=== PATIENT | male | born 1935 | race Caucasian/White ===

== ENCOUNTER 2018-06-21 11:44 | Inpatient (IN) ==
[2018-06-21 13:45] LABS: BASO# 0.04 X1000 (0.0-0.2); BASO% 0.5 % (0.0-0.8); EOS# 0.13 X1000 (0.0-0.7); EOS% 1.7 % (0.0-10.0); HEMATOCRIT 28.6 % (42.0-52.0); HEMOGLOBIN 8.9 g/dL (14.0-18.0); LYMPH# 1.34 X1000 (1.2-3.4); LYMPH% 17.4 % (20.5-51.1); MCH 29.2 PG (27-31); MCHC 31.1 g/dL (33-37); MCV 93.8 FL (81-99); MONO# 0.51 X1000 (0.11-0.59); MONO% 6.6 % (1.7-9.3); MPV 9.9 FL (7.4-10.4); NEUT# 5.66 X1000 (1.4-6.5); NEUT% 73.8 % (42.2-75.2); PLT 128 X1000 (130-400); RBC 3.05 XMIL (4.7-6.1); RDW 15.9 % (11.5-14.5); WBC 7.68 X1000 (4.8-10.8)
[2018-06-21 13:54] LABS: INR 1.93; PROTIME 23.5 Seconds (11.0-16.0)
[2018-06-21 13:56] LABS: PTT 73.8 Seconds (22.3-41.8)
[2018-06-21 14:04] LABS: ALB/GLOB RATIO 1.3; ALBUMIN 3.1 g/dL (3.5-5.0); CALCIUM 9.7 mg/dL (8.8-10.2); CREATININE 1.4 mg/dL (0.7-1.2); POTASSIUM 3.1 mmol/L (3.5-5.1); TOTAL BILIRUBIN 0.63 mg/dL (0.20-1.00); TOTAL PROTEIN 5.4 g/dL (6.3-8.3)
[2018-06-21 14:25] LABS: URINE SOURCE VOIDED
[2018-06-21 14:28] LABS: UR EPITHELIAL CELLS <10 /HPF (<10); URINE BACTERIA 1+ /HPF; URINE RBC TNTC /HPF (<10); URINE WBC <10 /HPF (<10)
[2018-06-21 14:31] LABS: BILIRUBIN URINE NEGATIVE (NEGATIVE); BLOOD URINE LARGE (NEGATIVE); COLOR ORANGE; GLUCOSE URINE NEGATIVE (NEGATIVE); KETONE URINE NEGATIVE (NEGATIVE); LEUKOCYTES URINE TRACE (NEGATIVE); NITRITE URINE NEGATIVE (NEGATIVE); PH URINE 6.5; PROTEIN URINE TRACE mg/dL (NEGATIVE); TURBIDITY URINE HAZY (CLEAR); UROBILINOGEN URINE NORMAL (NORMAL)
[2018-06-21] MEDS ORDERED: VITAMIN K SUBQ ONE (15:54)
[2018-06-21] MEDS ORDERED: NS 500 ML IV ONE (17:39)
--- NOTE | 2018-06-21 18:56 | HISTORY AND PHYSICAL ---
CHIEF COMPLAINT: Gross hematuria. HISTORY OF PRESENT ILLNESS: Mr. Scott is an 83-year-old gentleman followed by Dr. Contreras for multiple medical problems including prostate cancer, chronic atrial fibrillation on anticoagulation, and congestive heart failure. He is followed by Dr. Dav Montes for his prostate cancer. His geophysical engineer is Dr[facility] [place]. He came to the emergency room today because of persistent hematuria. His daughter is with him. Apparently, she drives up on the weekends from [place] since his approximately a month ago. He is feeling well and denies any pain. Last night he passed a fair amount of bright red blood in his urine. His daughter tried to get him to come to the emergency room last night but he decided to wait until this morning. This morning he took his Pradaxa and again urinated a fairly large amount of bright red blood. He does not normally wear briefs, but had a disposable brief on last night and this morning it was soaked in bright red urine and his daughter has a picture of it. He denies passing clots. Here in the emergency room, his blood pressure is 94/60 and his hemoglobin is 8.9, hematocrit 28.6%. There are no recent baselines to compare to. Approximately 18 months ago his hemoglobin was 11.7 in July of 2016. He denies fever, chills, or dysuria. He has not noticed any increased frequency of urination. He denies any dizziness or weakness. PAST MEDICAL HISTORY: He has had prostate cancer for at least six years. He does not seem to be on any maintenance medications for this. He has a history of congestive heart failure and chronic atrial fibrillation as well as hyperlipidemia. He also has a history of hypertension. HOME MEDICATIONS: Allopurinol 300 mg daily, carvedilol 25 mg twice a day, Pradaxa one twice a day, furosemide 40 mg daily, lisinopril 20 mg daily, nifedipine XL 60 mg daily, potassium 40 mEq every morning and 20 mEq at bedtime, simvastatin 40 mg at bedtime. ALLERGIES: He is allergic to sulfa drugs. FAMILY HISTORY: Noncontributory. SOCIAL HISTORY: He is recently . He lives alone. His daughter had planned to return to [place] today. He is a nonsmoker. REVIEW OF SYSTEMS: GENERAL: No fever, chills, headache, night sweats. He does admit to some slow weight loss over the last six months to a year. HEENT: Vision and hearing are adequate without recent changes. RESPIRATORY: No cough, shortness of breath, sputum production or chronic lung disease. CARDIOVASCULAR: He has a history as above. No recent anginal chest pain, orthopnea, PND, or pedal edema. GI: His appetite has been good. He denies any nausea, vomiting, diarrhea, constipation, melena, or bright red blood per rectum. : Voiding well without pain. He denies a previous history of stones. MUSCULOSKELETAL: Previous history of gouty arthritis. NEUROPSYCHIATRIC: No history of strokes or seizures. No recent depression or memory problems. DERMATOLOGIC: No rash or itching. PHYSICAL EXAMINATION: VITAL SIGNS: Temperature 97.6, blood pressure 94/46, pulse 64, respirations 16, O2 saturation 98% on room air. GENERAL APPEARANCE: Tall, slender, elderly white gentleman who is alert and talkative and in no distress. There is a urinal at the bedside with light orange urine but with some dried blood around the opening. HEENT: There is no visible evidence of trauma. Pupils are equal, round, and reactive to light, two to three mm. Oropharynx is benign. NECK: Supple with no adenopathy, JVD, or bruits. CHEST: Lungs are clear to auscultation and percussion. CARDIAC: There is an irregularly irregular rhythm with an apical rate of 66. I do not appreciate any murmurs or gallops. ABDOMEN: Soft, flat, and nontender with active bowel sounds. There is no guarding or rebound tenderness. : Some dried blood is present around the meatus, otherwise unremarkable. EXTREMITIES: There is some slight symmetrically reduced muscle mass, particularly in the hypothenar area. DATE BASE: White blood count is normal. Hemoglobin 8.9, hematocrit 28.6%, and platelet count is 128,000. Sodium 141, potassium 3.1, glucose 134, BUN 50, creatinine 1.4, albumin 3.1. Urinalysis with hazy, orange urine; large blood; too numerous to count red blood cells; trace leukocytes; 1+ bacteria. ASSESSMENT: 1. Impressive gross hematuria with anemia. It is most likely due to either infection or possibly his prostate cancer. The emergency room physician has already spoken with Dr. Huynh, who is contact center analyst for Dr. Montes. They will follow him. 2. Elevated BUN and creatinine suggestive of prerenal azotemia. 3. Hypotension, possibly dehydration, although he denies any diarrhea, vomiting, or increased thirst. 4. History of congestive heart failure. 5. Therapeutic anticoagulation with Pradaxa. His INR is nearly therapeutic, although he is not taking Coumadin. His last dose of Pradaxa was this morning, so it will probably take at least 24 hours to wear off. TREATMENT PLAN: Will admit for serial hemoglobin and hematocrit. Hold his Pradaxa and use sequential compression devices for DVT prophylaxis. Dr. Montes is consulted and Dr. Contreras should return tomorrow to assume responsibility for his care. I do not think his bleeding is vigorous enough to require reversal of the Pradaxa. cc: Robert Kramer MD
[2018-06-21] MEDS ORDERED: POTASSIUM CHLORIDE 20 MEQ in NS 250 ML IV ONE (19:00)
[2018-06-21] MEDS: NS 1,000 ML IV SCH (20:17)
[2018-06-21] MEDS: COREG PO SCH (21:20)
[2018-06-21] MEDS: ZYLOPRIM PO SCH (21:22)
[2018-06-21] MEDS: KLOR-CON PO SCH (21:22)
[2018-06-21] MEDS: ZOCOR PO SCH (21:22)
[2018-06-22] MEDS: NS 1,000 ML IV SCH (05:31)
[2018-06-22 07:18] LABS: HEMOGLOBIN 8.1 g/dL (14.0-18.0); MCH 29.8 PG (27-31); MCHC 31.2 g/dL (33-37); MCV 95.6 FL (81-99); MPV 9.9 FL (7.4-10.4); RBC 2.72 XMIL (4.7-6.1); WBC 7.57 X1000 (4.8-10.8)
[2018-06-22 07:39] LABS: AGAP 10; BUN 48 mg/dL (8-22); CALCIUM 9.2 mg/dL (8.8-10.2); CHLORIDE 110 mmol/L (98-107); COSMO 305; CREATININE 1.1 mg/dL (0.7-1.2); ESTIMATED GFR > 60; GLUCOSE 127 mg/dL (70-104); MAGNESIUM 1.9 mg/dL (1.5-2.7); POTASSIUM 3.5 mmol/L (3.5-5.1); SODIUM 146 mmol/L (136-145); TCO2 26 mmol/L (25-35)
[2018-06-22] MEDS: COZAAR PO SCH ×2 (08:53→08:56)
[2018-06-22] MEDS: KLOR-CON PO SCH ×2 (08:53→19:59)
[2018-06-22] MEDS: ADALAT CC PO SCH ×2 (08:53→08:56)
[2018-06-22] MEDS: COREG PO SCH ×4 (08:53→19:59)
--- NOTE | 2018-06-22 13:02 | PROGRESS NOTE ---
DATE: 06/22/2018 SUBJECTIVE: The patient was admitted with gross hematuria over the weekend. He had blood-filled adult diapers as well as blood clots that were noted. This has dissipated somewhat over the last 24 hours with hydration and cessation of his Pradaxa. He does not have any complaints. We did discuss appropriate blood pressure levels for the patient of his age and with his comorbidities. The patient's daughter, who is in from [place], was present for our entire conversation. OBJECTIVE: Vital Signs: 98.6, 60, 17, 109/69, 98% saturated on room air. Lungs: Clear. Cardiovascular: Regular at 60. Neurologic: The patient is alert oriented conversive and appropriate. LABORATORY: Hemoglobin is 8.1, hematocrit 26, BUN 48, creatinine 1.1, and glucose 127. ASSESSMENT AND PLAN: 1. A consultation for Dr. Montes has been put in. Dr. Montes is taking care of the patient for his prostate cancer in the past, and will likely need to proceed with cystoscopy for clot evacuation and general examination. 2. The patient's Pradaxa has been held. Since the patient is on a pacemaker at the present time, even though he has atrial fibrillation. Given his age and other comorbidities, I am not sure that full-strength Pradaxa is the appropriate medication. We will entertain lower doses of other agents as time goes on. For the time being, we are going to remain with that medication held. 3. The patient's blood pressure was noted to be low in the office on his last visit last week. We discussed reduction of one of his diuretics, which are being held at present. We are also going to lower a couple of his medications to get a higher resting blood pressure, so he will experience less in the way of unsteadiness and orthostasis. 4. Atrial fibrillation with pacer aware. cc: MD Robert Segal MD
[2018-06-22] MEDS ORDERED: ELMIRON PO ONE (18:50)
--- NOTE | 2018-06-22 19:30 | CONSULTATION ---
DATE OF CONSULTATION: 06/22/2018 ATTENDING AND REFERRING PHYSICIAN: Dr. Contreras. 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 He completed radiation therapy in May 2011. His PSA in June 2017 was 0.77. The patient has a history of coronary artery disease and atrial fibrillation. He has a pacemaker and is on Pradaxa. Several days ago he developed gross hematuria. The patient states he has always been able to void, but today started passing some clots. His Pradaxa has been held. PAST MEDICAL HISTORY: Coronary artery disease, gout, hypertension, prostate cancer. CURRENT MEDICATIONS: Documented in his chart. PAST SURGICAL HISTORY: AccuLock seed placement and then radiation therapy, inguinal hernia repair, first left and then several years later right, knee replacement surgery, hemorrhoids surgery, tonsillectomy and teeth extraction. SOCIAL HISTORY: He denies alcohol use. No cigarette use for several years. ALLERGIES: No known drug allergies. REVIEW OF SYSTEMS: He denies any problems with diabetes, strokes, seizures, recent pulmonary or bowel problems. PHYSICAL EXAMINATION: General: A normally developed, well-nourished, age apparent white male, oriented in all ways and cooperative. HEENT: Normal for age. Lungs: Clear. Cardiovascular: Irregular rate and rhythm. Abdomen: Mildly protuberant, soft, nontender. No hepatosplenomegaly or masses. Normal bowel sounds. No inguinal hernias. Genitourinary: Uncircumcised male. Foreskin retracts and there is blood at the meatus. Both testes are down. Scrotal exam is normal. There are bilateral hydroceles. Rectal: Deferred until surgery. Extremities: No clubbing, cyanosis or edema. Neurologic: No focal deficits. DIAGNOSTIC DATA: Laboratory evaluation: Urinalysis has too numerous to count red cells, but no white cells, +1 bacteria. No culture was obtained. CBC has a white count of 7.57, hemoglobin 8.1, hematocrit 26, platelets are 122,000. Serum sodium is 146, potassium 3.5, chloride 110, bicarb 26, BUN 48, creatinine 1.1. IMPRESSION: Patient with history of radiation therapy on anticoagulants with gross hematuria. RECOMMEND: 1. Cystoscopic exam, clot irrigation, bilateral retrograde pyelograms. Cauterize any bleeding areas noted. This planned procedure, benefits versus risks, possible complications including but not limited to bleeding, infection, not being able to stop the bleeding, recurrence of the bleeding, need for further surgery was discussed. The patient and daughter seemed to understand and desired to proceed. 2. Start Elmiron 100 mg p.o. t.i.d. 3. Check PSA. Thank you for this consultation. cc: MD Robert Palma MD MTDD
[2018-06-22] MEDS: ZOCOR PO SCH (19:59)
[2018-06-22] MEDS: ZYLOPRIM PO SCH (19:59)
[2018-06-23] MEDS: ELMIRON PO SCH ×4 (06:13→19:01)
[2018-06-23] MEDS ORDERED: COZAAR PO SCH (09:00)
[2018-06-23] MEDS ORDERED: NEOSPORIN G.U. IRRIGANT ONE (10:53)
[2018-06-23] MEDS ORDERED: DIPRIVAN 1% ONE (11:21)
[2018-06-23] MEDS ORDERED: XYLOCAINE-MPF 2% ONE (11:21)
[2018-06-23] MEDS ORDERED: KEFZOL 1 GM/D5W 1 GM/50 ML IVPB ONE (12:16)
--- NOTE | 2018-06-23 12:57 | PROGRESS NOTE ---
DATE: 06/23/2018 SUBJECTIVE: The patient states that he is feeling better. He still having gross hematuria into his diaper. Dr. Montes was consulted yesterday and plans to do a cystoscopy today. The patient is made n.p.o. and is awaiting cystoscopy now. OBJECTIVE: Vital Signs: 98.3, 60, 142/74, 100% saturated on room air. Lungs: Clear. Cardiovascular: Regular at 60. Extremities: No edema. ASSESSMENT AND PLAN: 1. The patient will undergo cystoscopy today in the OR with Dr. Montes for evacuation of clots and fulguration of any bleeding lesions. Hopefully, this will just be a minor surgical procedure for him, despite his age. We will recheck his blood count tomorrow and monitor for signs of recurrence. We are going to hold his Pradaxa, and we will have to design a new anticoagulation program for him at the time of discharge. 2. The patient's history of congestive failure remains. We are monitoring fluid status and blood count. 3. 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 We will continue to monitor those levels. cc: MD Robert Segal MD
--- NOTE | 2018-06-23 13:37 | Diag Imaging Result Doc PS360 ---
EXAM: RETROGRADES 2 OR 3 FILMS HISTORY: HEMATURIA TECHNIQUE: 32 films submitted COMPARISON: None. FINDINGS: Early films have retrograde filling of the left ureter. No obstruction to retrograde flow. Normal distention of the renal pelvis and calyces. No filling defect or stricture. Later films have retrograde filling of the right ureter. No obstruction to retrograde flow. No stricture or filling defect. Normal drainage. Prominent atherosclerosis. IMPRESSION: Normal retrograde exam. Electronically signed by Ganga Coyle 06/23/2018 1:34 PM
[2018-06-23] MEDS: KLOR-CON PO SCH ×3 (18:30→21:09)
[2018-06-23] MEDS: COREG PO SCH ×2 (18:55→21:03)
[2018-06-23] MEDS: ADALAT CC PO SCH (19:03)
--- NOTE | 2018-06-23 20:13 | OPERATIVE NOTE ---
PROCEDURE DATE: 06/23/2018 PREOPERATIVE DIAGNOSIS: History of prostate cancer, status post radiation therapy, with gross hematuria and clots. POSTOPERATIVE DIAGNOSIS: History of prostate cancer, status post radiation therapy, with gross hematuria and clots. PROCEDURES PERFORMED: Cystoscopic exam, clot irrigation, fulguration of bleeding vessels in the prostatic urethra, bilateral retrograde ureteral pyelograms. ANESTHESIA: General via laryngeal mask. FINDINGS: Cystoscopic exam: Urethra: Greater than 23-[place] without stricture. Prostate: Mild coapting lateral lobes. Bleeding vessels along the prostatic urethra and bladder neck. Bladder: Normal ureteral orifices bilaterally. There were a few clots in the bladder with active bleeding vessels at the bladder neck. There were no papillary lesions. Grade 1 trabeculations. No diverticula. Left retrograde ureteral pyelogram: Normal without filling defect. Right retrograde ureteral pyelogram: Normal without filling defect. Rectal exam revealed a prostate of about 40 grams, firm, consistent with radiation therapy. INDICATION FOR PROCEDURE: This 83-year-old male, with history of adenocarcinoma of the prostate, status post radiation therapy, developed gross hematuria. He developed urgency and urge incontinence and was wearing a diaper which would be filled with blood. The patient was admitted and presents for cystoscopic exam, clot irrigation, bilateral retrogrades, and fulguration as needed. DESCRIPTION OF PROCEDURE: After informed consent was obtained from the patient and family, and him receiving IV antibiotics, he was taken to the main OR cystoscopy room and placed in the supine position. General anesthesia via laryngeal mask was achieved. He was then placed in the low lithotomy position and prepped and draped in the usual sterile fashion for cystoscopic exam. A 23- [place] sheath cystoscope was passed through the patient's urethra, prostate, and bladder with findings noted above. The clots, which were not very large, were easily irrigated from the bladder. An 8-[place] cone-tipped catheter was passed through the cystoscope and engaged the left ureteral orifice. Contrast was injected. Right side was accomplished similarly. Again, no filling defects were seen on either side. The 8-[place] cone-tipped catheter was removed. The Bugbee electrode was placed and the prostatic urethra and bladder neck area were cauterized. The bladder was left distended. The cystoscope was removed. A 20-[place] silicone Vines was passed through the patient's urethra, prostate, and bladder without difficulty, and 10 mL of sterile water was placed in the Vines's balloon. The efflux was very light pink. A rectal exam was performed. He tolerated the procedure well. Estimated blood loss during the case was 1 mL. He was taken to the recovery room in good condition. cc: MD Robert Palma MD
[2018-06-23] MEDS: ZYLOPRIM PO SCH (21:03)
[2018-06-23] MEDS: ZOCOR PO SCH (21:03)
[2018-06-24] MEDS: ELMIRON PO SCH ×2 (06:30→11:14)
[2018-06-24 07:55] LABS: BASO# 0.04 X1000 (0.0-0.2); BASO% 0.3 % (0.0-0.8); EOS# 0.13 X1000 (0.0-0.7); EOS% 1.1 % (0.0-10.0); HEMATOCRIT 27.6 % (42.0-52.0); HEMOGLOBIN 8.5 g/dL (14.0-18.0); IMM GRAN# 0.03 X1000 (0.0-0.04); IMM GRAN% 0.3 % (0.0-0.5); LYMPH# 1.94 X1000 (1.2-3.4); LYMPH% 16.5 % (20.5-51.1); MCH 29.1 PG (27-31); MCHC 30.8 g/dL (33-37); MCV 94.5 FL (81-99); MONO# 1.02 X1000 (0.11-0.59); MONO% 8.7 % (1.7-9.3); MPV 9.8 FL (7.4-10.4); NEUT# 8.58 X1000 (1.4-6.5); NEUT% 73.1 % (42.2-75.2); PLT 142 X1000 (130-400); RBC 2.92 XMIL (4.7-6.1); RDW 16.4 % (11.5-14.5); WBC 11.74 X1000 (4.8-10.8)
[2018-06-24] MEDS ORDERED: COZAAR PO SCH (09:00)
[2018-06-24 09:01] LABS: AGAP 9; ALB/GLOB RATIO 1.2; ALKALINE PHOSPHATASE 145 U/L (32-122); BUN 26 mg/dL (8-22); CALCIUM 9.2 mg/dL (8.8-10.2); CHLORIDE 111 mmol/L (98-107); COSMO 290; ESTIMATED GFR > 60; GLUCOSE 109 mg/dL (70-104); GOT 33 U/L (10-34); GPT 22 U/L (10-44); POTASSIUM 4.6 mmol/L (3.5-5.1); SODIUM 143 mmol/L (136-145); TCO2 23 mmol/L (25-35); TOTAL BILIRUBIN 0.54 mg/dL (0.20-1.00); TOTAL PROTEIN 5.5 g/dL (6.3-8.3)
[2018-06-24 09:14] LABS: IRON SATURATION 9 %; TIBC 278 ug/dL; TOTAL IRON 26 ug/dL (53-167); UNBOUND IRON 252 ug/dL (112-346)
--- NOTE | 2018-06-24 09:26 | PROGRESS NOTE ---
DATE: 06/24/2018 SUBJECTIVE: The patient underwent cystoscopy yesterday, which showed some bleeding vessels in the urethra and the bladder neck. These were addressed and all clots were evacuated per Dr. Montes. There were no bladder lesions noted. Vines catheter was placed with a pinkish tinged urine returning. It was pulled sometime this morning around 5 a.m. and the patient has had gross bleeding since that time. OBJECTIVE: Vital Signs: 98.0 degrees, 64, 14, 141/61, 99% saturated on room air. General: The patient is alert, oriented, conversive and appropriate. He is hard of hearing. Lungs: Are clear. Cardiovascular: Regular. : When I looked in his diaper, he did have gross amounts of some blood draining from the tip of his penis into the diaper. This was not as copious as previously, but was clearly more evident than his postprocedural state yesterday. ASSESSMENT AND PLAN: 1. The patient is off Pradaxa which I am sure is a driving element in his recent blood loss. His hemoglobin is stable at 8.5. I do not think transfusion is necessary at the present time. Dr. Montes will likely come by later today and hopefully can shed some light on the expectations for recovery and recovery times. 2. History of congestive failure is noted. The patient seems euvolemic at the present time. 3. The patient's blood pressures come up with reduction in some medications. This is peaking a little bit higher than I would like and I think I am going to add back the full dose of his losartan but keep his carvedilol at 12.5. We will monitor this and make adjustments as necessary. cc: MD Robert Segal MD
[2018-06-24] MEDS: ADALAT CC PO SCH (09:35)
[2018-06-24] MEDS: COREG PO SCH (09:35)
[2018-06-24 11:27] VITALS: BP 113/54
--- NOTE | 2018-06-24 18:47 | PROVIDER DOCUMENTATION ---
This chart was entered by Astrid Kolb Scribe, acting as scribe for Omar Cruz MD. HPI-Male Problem - General Chief Complaint: Male Stated Complaint: PEEING BLOOD,PROSTATE CANCER Time Seen by Provider: 06/21/18 12:10 Source: patient Allergies/Adverse Reactions: Patient Allergies Allergy/AdvReac Type Severity Reaction Status Date / Time Sulfa (Sulfonamide Allergy Unknown Unknown Verified 03/20/16 23:36 Antibiotics) Home Medications: Home Medication List Medication Instructions Recorded Confirmed Last Taken Type Allopurinol 300 mg PO QPM 08/15/16 06/21/18 08/21/16 05:00 History Carvedilol [Coreg] 25 mg PO BID 08/15/16 06/21/18 08/21/16 05:00 History Furosemide [Lasix] 40 mg PO DAILY 08/15/16 06/21/18 08/20/16 History Losartan [Cozaar] 100 mg PO DAILY 08/15/16 06/21/18 08/20/16 History Nifedipine [Procardia Xl] 60 mg PO DAILY 08/15/16 06/21/18 08/21/16 05:00 History Potassium Chloride 20 meq PO QPM 08/15/16 06/21/18 08/21/16 05:00 History SIMVAstatin [Zocor] 40 mg PO QHS 08/15/16 06/21/18 08/21/16 05:00 History Dabigatran Etexilate Mesylate 75 mg PO BID 06/21/18 06/21/18 Unknown History [Pradaxa] Potassium Chloride E.r. [Klor-Con] 40 meq PO QAM 06/21/18 06/21/18 Unknown History - History of Present Illness-Male Nature of Presenting Problem: 83yom with hx of prostate cancer c/o hematuria since yesterday. He denies any pain. He reports his urologist as Dr. Montes. He denies fever, chills, nausea, vomiting, diarrhea, cp, and sob. Quality of Pain: reports: none Severity in ED: reports: mild, moderate Onset/Duration: reports: 24 hours ago (yesterday) Timing: reports: still present, constant Context/Activities at Onset: reports: none Urinary Symptoms: reports: hematuria Associated Symptoms: denies: chest pain, fever/chills, nausea, vomiting Similar Symptoms Previously?: No Recently seen or treated by another doctor?: No Review of Systems - Adult - REVIEW OF SYSTEMS - ADULT Constitutional: denies: chills, fever Eyes: denies: discharge, dry eyes Ears, Nose, Mouth & Throat: denies: ear discharge, ear pain Cardiovascular: denies: chest pain, palpitations Respiratory: denies: cough, shortness of breath Gastrointestinal: denies: abdominal pain, diarrhea, nausea, vomiting Genitourinary: reports: hematuria. denies: dysuria Musculoskeletal: denies: back pain, muscle aches, muscle weakness Integumentary: reports: no symptoms reported Neurological: denies: dizziness/vertigo, headache/migraines Psychiatric: reports: no symptoms reported Endocrine: reports: no symptoms reported Hematologic/Lymphatic: reports: no symptoms reported Allergic/Immunologic: reports: no symptoms reported All Other Systems: Reviewed and Negative Past History - Adult - PAST MEDICAL HISTORY-ADULT Review of Records: reports: Old Records Reviewed, Nursing Assessment Review, Medications Reviewed Major Childhood Illnesses: reports: denies history - PRIOR SURGERIES/PROCEDURES Surgical/Procedure History: reports: none - IMMUNIZATION STATUS Childhood Immunizations: See Nurse Assessment Flu Vaccine: See Nurse Assessment - FAMILY HISTORY Family History: reviewed, not pertinent - SOCIAL HISTORY Smoking: other (former) Substance Use: denies Living Situation: family Physical Exam-General - PHYSICAL EXAM-ADULT Initial Vital Signs Reviewed: Yes - CONSTITUTIONAL General Appearance: alert, no apparent distress - EYES Eyes: PERRL/EOMI, pink conjunctivae - NECK Neck: non-tender, supple - RESPIRATORY Respiratory: chest non-tender, lungs clear, normal breath sounds, no pleuratic chest pain, no respiratory distress, no accessory muscle use. negative: rhonchi, wheezing - CARDIOVASCULAR Cardiovascular: regular rate, rhythm, no murmur - GASTROINTESTINAL (ABDOMEN) Abdominal Exam: non tender, soft - GENITOURINARY Male Genitalia: other (painless hematuria) - SKIN Integumentary: normal color, warm/dry - NEUROLOGIC Neurologic: grossly normal, no motor/sensory deficits - PSYCHIATRIC Psych/Mental Status: normal mood/affect, normal thought content, normal thought process, oriented x 3 Progress - PLAN OF CARE/RESULTS Progress/Plan/Lab Results: Vital Signs - 8 hr 06/21/18 11:49 Temperature 97.6 F Pulse Rate 64 Respiratory Rate 16 Blood Pressure 94/46 O2 Sat by Pulse Oximetry 98 Laboratory Results - last 24 hr 06/21/18 06/21/18 06/21/18 13:33 13:33 13:33 WBC 7.68 RBC 3.05 L Hgb 8.9 L Hct 28.6 L MCV 93.8 MCH 29.2 MCHC 31.1 L RDW Std Deviation 15.9 H Plt Count 128 L MPV 9.9 Immature Gran % (Auto) 0.0 Neut % (Auto) 73.8 Lymph % (Auto) 17.4 L [place] % (Auto) 6.6 Eos % (Auto) 1.7 Baso % (Auto) 0.5 Immature Gran # (Auto) 0.00 Neut # (Auto) 5.66 Lymph # (Auto) 1.34 [place] # (Auto) 0.51 Eos # (Auto) 0.13 Baso # (Auto) 0.04 PT 23.5 H INR 1.93 PTT (Actin FS) 73.8 H Sodium 141 Potassium 3.1 L Chloride 103 Carbon Dioxide 28 Anion Gap 10 BUN 50 H Creatinine 1.4 H Estimated GFR/1.73 m2 48 BUN/Creatinine Ratio 36 Glucose 134 H Calculated Osmolality 297 Calcium 9.7 Total Bilirubin 0.63 AST 18 ALT 10 Alkaline Phosphatase 116 Total Protein 5.4 L Albumin 3.1 L Globulin 2.3 Albumin/Globulin Ratio 1.3 Urine Source Urine Color Urine Turbidity Urine pH Ur Specific [place] Urine Protein Ur Glucose (Stick) Ur Ketones (Stick) Urine Blood Urine Nitrite Urine Bilirubin Urobilinogen Dipstick Urine Leukocytes Urine WBC (Auto) Urine RBC (Auto) U Epithel Cells (Auto) Urine Bacteria (Auto) 06/21/18 13:58 WBC RBC Hgb Hct MCV MCH MCHC RDW Std Deviation Plt Count MPV Immature Gran % (Auto) Neut % (Auto) Lymph % (Auto) [place] % (Auto) Eos % (Auto) Baso % (Auto) Immature Gran # (Auto) Neut # (Auto) Lymph # (Auto) [place] # (Auto) Eos # (Auto) Baso # (Auto) PT INR PTT (Actin FS) Sodium Potassium Chloride Carbon Dioxide Anion Gap BUN Creatinine Estimated GFR/1.73 m2 BUN/Creatinine Ratio Glucose Calculated Osmolality Calcium Total Bilirubin AST ALT Alkaline Phosphatase Total Protein Albumin Globulin Albumin/Globulin Ratio Urine Source VOIDED Urine Color ORANGE Urine Turbidity HAZY Urine pH 6.5 Ur Specific [place] 1.000 Urine Protein TRACE A Ur Glucose (Stick) NEGATIVE Ur Ketones (Stick) NEGATIVE Urine Blood LARGE A Urine Nitrite NEGATIVE Urine Bilirubin NEGATIVE Urobilinogen Dipstick NORMAL Urine Leukocytes TRACE A Urine WBC (Auto) <10 Urine RBC (Auto) TNTC A U Epithel Cells (Auto) <10 Urine Bacteria (Auto) 1+ Orders Category Date [facility] Routine AdmDCTranf 06/21/18 17:27 Active Activity - Up Ad Maria C ORDERED Care 06/21/18 17:26 Active Apply Mechanical Device [QM] ORDERED Care 06/21/18 17:26 Active DVT/PE Risk Assess/Protocol [QM] ORDERED Care 06/21/18 17:27 Active Intake and Output-Strict ORDERED Care 06/21/18 17:27 Active Nursing- MD Consult Request ROUTINE Care 06/21/18 17:36 Active Vital Signs Order Q 8-HR ASSESS Care 06/21/18 17:27 Active Physician/Provider Consults Routine Cons 06/21/18 17:26 Ordered Regular Diet Diet 06/21/18 17:28 Active BASIC METABOLIC PANEL [CHEM] Routine Lab 06/22/18 06:00 Uncollected CBC WITH DIFF [HEME] Stat Lab 06/21/18 13:33 Completed CBC WITH NO DIFF [HEME] Routine Lab 06/22/18 06:00 Uncollected COMPREHENSIVE METABOLIC PANEL [CHEM] Stat Lab 06/21/18 13:33 Completed MAGNESIUM [CHEM] Routine Lab 06/22/18 06:00 Uncollected PROTIME WITH INR [COAG] Stat Lab 06/21/18 13:33 Completed PTT [COAG] Stat Lab 06/21/18 13:33 Completed TYPE & SCREEN [BBK] Routine Lab 06/22/18 06:00 Ordered URINALYSIS [URINALYSIS] Stat Lab 06/21/18 13:58 Completed 0.9% Sodium Chloride Inj [Ns] 1,000 ml Med 06/21/18 17:30 Ordered IV 125 mls/hr 0.9% Sodium Chloride Inj [Ns] 250 ml Med 06/21/18 17:39 Ordered Potassium Chloride 20 meq IV 50 mls/hr 0.9% Sodium Chloride Inj [Ns] 500 ml Med 06/21/18 17:39 Ordered IV 999 mls/hr Allopurinol [Zyloprim] Med 06/21/18 21:00 Ordered 300 mg PO QPM Carvedilol [Coreg] Med 06/21/18 21:00 Ordered 25 mg PO BID Losartan [Cozaar] Med 06/22/18 09:00 Ordered 100 mg PO DAILY Nifedipine [Procardia Xl] Med 06/22/18 09:00 Ordered 60 mg PO DAILY Phytonadione [Vitamin K] Med 06/21/18 15:54 Discontinued 10 mg SUBQ NOW ONE Potassium Chloride Med 06/21/18 21:00 Ordered 20 meq PO QPM Potassium Chloride E.r. [Klor-Con] Med 06/22/18 09:00 Ordered 40 meq PO QAM SIMVAstatin [Zocor] Med 06/21/18 21:00 Ordered 40 mg PO QHS Transfer/Admit Order [TRANSFER] Routine Transfer 06/21/18 17:38 Ordered Result Diagrams: 06/21/18 13:33 06/21/18 13:33 - CONSULTS/PCP/HOSPITALIST Notification #1 *Consult/PCP/Hospitalist*: Dr Kramer for Dr Springer Time Discussed: 16:00 Consult Disposition: Will see in ED Departure - Departure Date of Disposition Decision: 06/21/18 Time of Disposition Decision: 16:24 DIAGNOSIS: Hematuria, Anemia, Hypokalemia Disposition: ADMITTED INPATIENT 09 Certified Medical Emergency: Emergent Condition: Fair Referrals and Follow-Ups: Sreekanth Contreras MD [Primary Care Provider] - - Critical Care Note This patient required my direct & personal management of CC.: No Attestation - Physician/ PARAMJIT Attestation Patient care was provided by Advanced Practice Provider:: No The physician spent face to face time with patient:: Yes Advanced Practice Provider documentation review:: Supervising physician onsite and consulted in the evaluation and care of this patient. The physician did have a face to face encounter with the patient. This chart was documented by the indicated scribe, (Astrid Kolb Scribe) and accurately reflects the services I performed and decisions made by me, Omar Cruz MD, as attested by the provider's signature.
--- NOTE | 2018-06-26 09:10 | DISCHARGE SUMMARY ---
ADMISSION DATE: 06/21/2018 DISCHARGE DATE: 06/24/2018 DISCHARGE DIAGNOSES: 1. Gross hematuria. 2. Chronic use of anticoagulation. 3. Paroxysmal atrial fibrillation. 4. Pacemaker. 5. Hypertension. 6. Medication induced orthostatic hypotension. 7. History of prostate cancer. HOSPITAL COURSE: 83-year-old white male presented with gross hematuria of fairly copious volume. Consultation with Dr. Montes was obtained in the patient with a cystoscopy. He had some clots evacuated and some cauterization of some oozing vessels. His condition was compounded by the fact that he was taking Pradaxa at full strength for atrial fibrillation, even though he is pretty much pacemaker dependent and his heart rate has been pushed down fairly low. We made the determination to stop his Pradaxa. At no time did he meet criteria for transfusion and his blood pressure remained stable. Because of some issues with orthostasis that we had noted in the office the week prior to admission, some adjustments in medications were made. In the office, we had canceled one of his diuretics. During the hospitalization we lowered his carvedilol dose to 12.5 mg p.o. b.i.d. His pressure came up into the 120s 130s on average. We felt this was sufficient. The day after the patient's cystoscopy, Vines catheter was removed. He continued to have some hematuria or grossly bloody penile leakage. Dr. Montes saw the patient, felt he was stable enough to go home. The patient was discharged home with arrangements to follow up in my office with a CBC within the next week. cc: MD Robert Segal MD
== END 2018-06-24 12:50 | disposition home health service (06) | DRG 663 ==
LOC: ED 11:44 → 4N 18:15 → 3N 18:24
PROVIDERS: ADMIT Internal Medicine; ATTEND Internal Medicine
CPT/HCPCS: 74420; 80048; 80053; 81001; 82607; 82746; 83540; 83550; 83735; 84153; 85025; 85027; 85610; 85730; 86850; 86900; 86901; 96372; 99284; A9270; G0103; J0690; J3430; J3480; J7030; J7040; J7050; Q9966; Q9967; XXXXX

== ENCOUNTER 2018-07-21 10:42 | Inpatient (IN) ==
[2018-07-21] MEDS ORDERED: ZOFRAN IV PRN (11:00)
[2018-07-21] MEDS ORDERED: TYLENOL PO PRN (11:00)
[2018-07-21] MEDS ORDERED: NS 500 ML IV ONE (11:03)
[2018-07-21 18:48] LABS: BASO# 0.02 X1000 (0.0-0.2); BASO% 0.2 % (0.0-0.8); EOS# 0.02 X1000 (0.0-0.7); EOS% 0.2 % (0.0-10.0); HEMATOCRIT 28.5 % (42.0-52.0); HEMOGLOBIN 8.3 g/dL (14.0-18.0); LYMPH# 0.84 X1000 (1.2-3.4); LYMPH% 9.7 % (20.5-51.1); MCHC 29.1 g/dL (33-37); MCV 85.8 FL (81-99); MONO% 8.1 % (1.7-9.3); MPV 9.9 FL (7.4-10.4); NEUT# 7.06 X1000 (1.4-6.5); NEUT% 81.8 % (42.2-75.2); PLT 153 X1000 (130-400); RBC 3.32 XMIL (4.7-6.1); RDW 17.7 % (11.5-14.5); WBC 8.64 X1000 (4.8-10.8)
[2018-07-21 19:12] LABS: ALB/GLOB RATIO 0.8; ALBUMIN 2.7 g/dL (3.5-5.0); CALCIUM 9.3 mg/dL (8.8-10.2); CREATININE 1.4 mg/dL (0.7-1.2); POTASSIUM 4.6 mmol/L (3.5-5.1); TOTAL BILIRUBIN 0.65 mg/dL (0.20-1.00); TOTAL PROTEIN 5.9 g/dL (6.3-8.3)
[2018-07-21] MEDS ORDERED: MORPHINE IV PRN (19:47)
[2018-07-21] MEDS ORDERED: IMODIUM PO PRN (19:48)
[2018-07-21] MEDS ORDERED: TYLENOL ARTHRITIS PO PRN (19:49)
[2018-07-21] MEDS ORDERED: NS 1,000 ML IV SCH (20:30)
[2018-07-21] MEDS ORDERED: NS 800 ML IV SCH (20:45)
[2018-07-21] MEDS: ZYLOPRIM PO SCH (20:46)
[2018-07-21] MEDS ORDERED: REMERON PO SCH (21:00)
--- NOTE | 2018-07-21 21:58 | Diag Imaging Result Doc PS360 ---
EXAM: CT ABD/PELVIS W/IV CONT ONLY HISTORY: abd/back pain, hypotension TECHNIQUE: CT abdomen and pelvis with intravenous contrast COMPARISON: None. FINDINGS: The heart is enlarged. There is a moderate-sized right-sided pleural effusion measuring 6 cm posteriorly and inferiorly in the midline. There are small nodules in the lower lungs. Small moderate pericardial effusion. Prominent atelectasis to the right lower lobe. There are many scattered hypodense hepatic lesions. Normal spleen and pancreas. There is thickening to the adrenal glands. Sludge versus tiny stones within the gallbladder. There are renal calcifications believed to be arterial. No hydronephrosis. Mildly prominent pb hepatis lymph nodes. Severe atherosclerosis. No aortic aneurysm. No bowel obstruction. No abscess. The urinary bladder is distended and appears normal. Normal prostate. The bones are osteopenic. Moderate degenerative spine changes. IMPRESSION: 1.Multiple hepatic metastases 2.Lower lung nodules likely representing metastases with a moderate-sized right pleural effusion and right lower lobe atelectasis 3.Cardiomegaly with pericardial effusion 4.Severe atherosclerosis 5.Tiny stones or sludge within the gallbladder This exam was performed using automated exposure control, adjustment of mA or kV according to patient size, and/or use of iterative reconstruction technique. Electronically signed by Ganga Coyle 07/21/2018 9:55 PM
[2018-07-22] MEDS ORDERED: NS 1,000 ML IV SCH ×2 (04:30)
[2018-07-22 08:04] LABS: CALCIUM 9.4 mg/dL (8.8-10.2); CREATININE 1.3 mg/dL (0.7-1.2); MAGNESIUM 2.8 mg/dL (1.5-2.7); POTASSIUM 4.4 mmol/L (3.5-5.1)
[2018-07-22] MEDS ORDERED: NORCO-5 PO PRN (08:35)
[2018-07-22] MEDS ORDERED: 1/2 NS 500 ML IV ONE (08:37)
--- NOTE | 2018-07-22 09:08 | PROGRESS NOTE ---
DATE: 07/22/2018 SUBJECTIVE: The patient had a rough day yesterday despite my putting in admission orders, including labs and CT scan at 11 a.m. By 6:30 p.m., none of those results were in, and I do not think anything had been drawn anyway at that point. By this morning, we had all of those results, but it was a ridiculous amount of delay in time that could have affected our therapeutic course. I apologized to the patient and his family. The family has noted that last night, when we doubled the dose of mirtazapine, that his back pain actually got worse. He was more restless and in even more pain. We are going to discontinue that medication per their wishes, and try some other means of achieving better rest at night. It was also reported that he had 400 to 600 mL postvoid residual, and very poor urine output by and large. OBJECTIVE: Vital Signs: Temperature 98.1, pulse 62, respiratory rate 16, blood pressure 127/48, and 95% saturated on room air. General: The patient is alert, oriented, conversive, and appropriate. He is hard of hearing, so we have to repeat a few things. The patient's daughter and son are present for the conversation. Lungs: Clear. Cardiovascular: Regular at approximately 60 beats per minute. Extremities: Reduced edema from yesterday despite fluid bolus. This is likely due to elevation of the legs. He has muscle wasting in the quadriceps compartment. LABORATORY DATA: White cell count was 8.6, hemoglobin 8.3 (baseline). Serum sodium this morning was 149. Elevated chloride. BUN was 44, creatinine 1.3. Magnesium is 2.8. ASSESSMENT AND PLAN: 1. We are going to treat the patient's back pain as if it is medication related. I am not sure if this is the case. With his urinary retention, he could be having ureteral colic as a manifestation as well. I am going to change up his sleep medications considerably, including some pain medication, and see if he gets better rest. 2. The patient's CT scan came back with the unfortunate finding of multiple metastatic lesions in the liver and likely in the lower lungs. We do not have a primary for this, and I discussed the potential workup with the family. It was my recommendation to them that we do nothing and do not pursue the primary tumor, and call in Hospice with [facility] to manage his final days. I think overall, his length of life would be would be [id number] by going on hospice, and his quality of life will certainly be addressed more aggressively. The family seemed to be in agreement with this overriding philosophy. 3. The patient's heart issues remained stable. His blood pressure has come up to levels, which I think are much more appropriate for daily functioning. I am going to leave off his blood pressure medications for now. 4. The patient is having urinary retention. I am going to consult Dr. Montes, who saw him last time for hematuria and performed a procedure. I would simply put him on Flomax, except for the effects it might have on his blood pressure and his functionality. Hopefully, Dr. Montes can come up with a recommendation. I would prefer not to have a Vines catheter in, but if that is necessary, then we will do so. 5. The patient will remain in the hospital until we can assure that he is comfortable and able to rest at night on his new regimen. We will make adjustments in medications as necessary. 6. It was noted that the patient's sodium and chloride were up a bit. I am going to give him a half-normal saline bolus and let this fluid equilibrate before we restart any Lasix. cc: Sreekanth Contreras MD
[2018-07-22] MEDS: PREDNISONE PO SCH (09:41)
[2018-07-22] MEDS: VITAMIN C PO SCH (09:49)
[2018-07-22 19:21] LABS: URINE SOURCE CATH
[2018-07-22 19:24] LABS: BILIRUBIN URINE NEGATIVE (NEGATIVE); BLOOD URINE NEGATIVE (NEGATIVE); COLOR YELLOW; GLUCOSE URINE NEGATIVE (NEGATIVE); KETONE URINE NEGATIVE (NEGATIVE); LEUKOCYTES URINE MODERATE (NEGATIVE); NITRITE URINE NEGATIVE (NEGATIVE); PH URINE 5.5; PROTEIN URINE TRACE mg/dL (NEGATIVE); SP GRAVITY URINE 1.022; TURBIDITY URINE CLEAR (CLEAR); UR EPITHELIAL CELLS <10 /HPF (<10); URINE BACTERIA 3+ /HPF; URINE RBC <10 /HPF (<10); UROBILINOGEN URINE NORMAL (NORMAL)
--- NOTE | 2018-07-22 20:58 | CONSULTATION ---
DATE OF CONSULTATION: 07/22/2018 ATTENDING AND REFERRING PHYSICIAN: Sreekanth Contreras MD HISTORY OF PRESENT ILLNESS: This 83-year-old male was admitted with severe lower back pain. 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 He completed radiation therapy in May of 2011. His PSA in June of 2017 was 0.77 and 0.7 in June of 2018. He developed urinary retention over the past several days. His bladder scan early this morning was over 500. The patient's family states he has been drinking fluids all day and has barely voided at all. The patient is sitting in a chair and states he feels some discomfort, but his back is feeling better after having morphine last evening. The patient has significant coronary artery disease and was on Pradaxa. He developed gross hematuria, and this was stopped. His cystoscopic exam in early June 2018 revealed areas in the prostatic urethra and trigone of the bladder consistent with radiation cystitis. The patient had clots irrigated out, and eventually his urine completely cleared. The patient is not on any anticoagulants at present. As part of his workup at admission he received a CT scan that revealed multiple metastatic areas in the liver and probable lung. The primary is not known. PAST MEDICAL HISTORY: Coronary artery disease, gout, hypertension, prostate cancer. CURRENT MEDICATIONS: Documented on the chart. PAST SURGICAL HISTORY: Acculoc seed placement and then radiation therapy, inguinal hernia repair, first left and then right, left knee replacement, hemorrhoid surgery, tonsillectomy and teeth extraction. SOCIAL HISTORY: No current tobacco or alcohol use. ALLERGIES: No known drug allergies. REVIEW OF SYSTEMS: The patient denies problems with diabetes, strokes, seizures, recent pulmonary or bowel problems. PHYSICAL EXAMINATION: General: A normally developed, well-nourished, age apparent, white male, who is cooperative. HEENT: Normal for age. Lungs: Clear. Cardiovascular: Regular rate and rhythm. Abdomen: Protuberant, soft, nontender. No hepatosplenomegaly or masses. Normal bowel sounds. The bladder does appear palpable just above the pubic bone. No inguinal hernias. Genitourinary: Uncircumcised male. Foreskin retracts. Both testes are down. Scrotal exam normal. Small bilateral hydroceles. Rectal Exam: Deferred. On 06/23/2018, his rectal exam revealed a prostate of about 40 g, firm, consistent with previous radiation. Extremities: No clubbing, cyanosis, or edema. Neurological: No focal deficits. LABORATORY EVALUATION: He has a white count of 8.64, hemoglobin 8.3, hematocrit of 28.5. Serum electrolytes have a sodium of 149, potassium 4.4, chloride 111, bicarb 27, BUN 44, creatinine 1.3. IMPRESSION: 1. History of prostate cancer with PSA of 0.7 in June of 2018. 2. Multiple metastatic lesions in the liver and probably in the lung with an unknown primary. 3. Urinary retention. Recommend place Vines catheter for several days to allow the bladder to regain its tone. 4. Start Flomax 0.4 mg at bedtime. Thank you for this consultation. cc: MD Sreekanth Palma MD
[2018-07-22] MEDS ORDERED: NORCO-5 PO SCH (21:00)
[2018-07-22] MEDS ORDERED: RESTORIL PO SCH (21:00)
[2018-07-22] MEDS ORDERED: FLOMAX PO SCH (21:00)
[2018-07-22] MEDS: ZYLOPRIM PO SCH (21:16)
[2018-07-23 07:38] VITALS: BP 124/68
[2018-07-23] MEDS: PREDNISONE PO SCH (08:46)
[2018-07-23] MEDS: VITAMIN C PO SCH (08:46)
[2018-07-23] MEDS ORDERED: OMNICEF PO SCH (09:00)
--- NOTE | 2018-07-24 07:03 | DISCHARGE SUMMARY ---
ADMISSION DATE: 07/21/2018 DISCHARGE DATE: 07/23/2018 DISCHARGE DIAGNOSES: 1. Urinary retention. 2. Back pain. 3. Metastatic cancer of unknown primary. 4. History of prostate cancer with radiation cystitis. 5. Atherosclerosis of [place] vessels without angina. 6. Chronic systolic congestive heart failure. 7. Stage 2 renal disease. HISTORY: This 83-year-old white male was admitted to the hospital after struggling for several days with sleep and acute onset of back pain at night. The patient's family believes that his back pain came from him taking mirtazapine which we were trying as a sedative at night because he was not sleeping. He recently lost his , and is having difficulty with consistent sleeping. The patient was seen in the office and admitted to the hospital. We ordered a CT scan and after great delay in getting labs and CT scan, he was found to have multiple hypodense nodules in his liver and lower lungs consistent with metastatic disease. This would be very atypical for prostate cancer, and more likely represents a carcinoma of unknown primary. Given his age and multiple severe comorbidities, it was decided not to pursue workup and to enlist hospice care. He was already set up with [facility], and was going to transition to [facility] as a result of that connection. [facility] also took care of the patient's . He was in agreement with the plan, and the family was fully informed of our decision. The patient had been having difficulty urinating, and had seen Dr. Montes the last time and had a cystoscopy where they performed a cauterization of some radiation cystitis that he had from treatment of his prostate cancer years ago. This seems to resolve completely, and he is not having hematuria any further. The bladder scans on post residual checks were in the [address] Montes decided to put in a Vines catheter temporarily and start him on Flomax. He seemed to have a fairly tremendous amount of output, and had some relief from his abdominal and back pain as a result. He will remain with a Vines catheter until he can follow with Dr. Montes. The patient has also been struggling with gross weakness and hypotension including orthostatic changes. He have gradually tapered him off of medications and essentially during his hospitalization, we had him off all blood pressure medications, and it was at a more than reasonable level. I plan to send him home with no blood pressure medications. He is also off of anticoagulation from his previous bleeding difficulty and will remain so. The patient was no code level 1 during his hospitalization. The family was aware of that and were in full support. The patient can follow up with me as needed. I will be doing orders through home health as appropriate, and he will have follow up with Dr. Montes. We did find that the patient slept best with just a small dose of [place] at night. We also found that he did better when he had oxygen on, so we are going to continue a couple L of oxygen at night when he sleeps. Without the oxygen at night, his oxygen saturation had dropped as low as in the 80s.. cc: Sreekanth Cotnreras MD
== END 2018-07-23 12:22 | disposition hospice, home (50) | DRG 696 ==
LOC: DIRADM 10:42 → 3N 11:12
PROVIDERS: ADMIT Internal Medicine; ATTEND Internal Medicine
CPT/HCPCS: 74177; 80048; 80053; 81001; 83735; 85025; 87077; 87088; 87186; 94761; A9270; J2270; J7030; J7040; J7506; J7512; Q9967